=== PATIENT | male | born 1955 | race Caucasian/White ===

== ENCOUNTER → 2024-01-11 10:47 | Outpatient (BNVA) | payer MEDICARE, OTHER, SELFPAY | PROVIDERS: PCP Family Medicine; Visit Provider Podiatrist Foot & Ankle Surgery | DX: G62.9 Polyneuropathy, unspecified (principal) | CPT/HCPCS: 99203 ==

== ENCOUNTER → 2024-05-10 12:54 | Outpatient (BNVA) | payer MEDICARE, OTHER, SELFPAY | PROVIDERS: PCP Family Medicine; Visit Provider Podiatrist Foot & Ankle Surgery | DX: G62.9 Polyneuropathy, unspecified (principal) | CPT/HCPCS: 99213 ==

== ENCOUNTER 2024-06-14 09:46 | Outpatient (CLI) | payer MEDICARE, OTHER, SELFPAY | END 2024-06-14 09:47 | disposition home or self-care (01) | LOC: SPT 09:48 | PROVIDERS: PCP Family Medicine; Visit Provider Podiatrist Foot & Ankle Surgery | DX: Z46.89 Encounter for fitting and adjustment of other specified devices (principal); G62.9 Polyneuropathy, unspecified | CPT/HCPCS: L3030 ==

== ENCOUNTER → 2024-11-08 12:35 | Outpatient (BNVA) | payer MEDICARE, OTHER, SELFPAY | PROVIDERS: PCP Family Medicine; Visit Provider Podiatrist Foot & Ankle Surgery | DX: M79.671 Pain in right foot (principal); M79.672 Pain in left foot; G62.9 Polyneuropathy, unspecified | CPT/HCPCS: 99213 ==